=== PATIENT | female | born 1970 | race Caucasian/White ===

== ENCOUNTER 2020-09-21 14:30 | Emergency (ER) | payer BC, SELFPAY ==
[~2020-09-21] VITALS: Ht 170.2 cm; Wt 109.1 kg
[2020-09-21] MEDS ORDERED: HYDR50TAB PO (15:09)
[2020-09-21] MEDS ORDERED: JANU100T14 PO (15:09)
[2020-09-21] MEDS ORDERED: DICL-234 PO (15:09)
[2020-09-21] MEDS ORDERED: LEVO137T2 PO (15:09)
[2020-09-21] MEDS ORDERED: GABA-845 PO (15:09)
[2020-09-21] MEDS ORDERED: SPIR100T3 PO (15:09)
[2020-09-21] MEDS ORDERED: SOMA350T PO (16:23)
[2020-09-21 16:32] VITALS: BP 148/90
== END 2020-09-21 16:36 | disposition home or self-care (01) ==
LOC: M ED 14:30
DX: M54.42 Lumbago with sciatica, left side (principal); I10 Essential (primary) hypertension; E11.9 Type 2 diabetes mellitus without complications; F17.200 Nicotine dependence, unspecified, uncomplicated